=== PATIENT | male | born 1965 | race Two or more races ===

== ENCOUNTER 2020-12-11 01:14 | Emergency (ER) | payer SELFPAY ==
[2020-12-11 01:48] LABS: BLOOD UREA NITROGEN,BUN 22 mg/dL (7.0-18.0); CARBON DIOXIDE,CO2 27.5 mmol/L (21.0-32.0); CHLORIDE,CL 105 mmol/L (98-107); GLUCOSE RANDOM 143 mg/dL (74-106); LIPASE 61 U/L (73-393); POTASSIUM,K 4.2 mmol/L (3.5-5.1); SODIUM,NA 142 mmol/L (136-148)
--- NOTE | 2020-12-11 01:48 | EDM.PDOC ---
ED HPI GENERAL MEDICAL PROBLEM - General Chief Complaint: Chest Pain Stated Complaint: CHEST PAIN Time Seen by Provider: 12/11/20 01:20 Source of Information: Reports: Patient History Limitations: Reports: No Limitations - History of Present Illness INITIAL COMMENTS - FREE TEXT/NARRATIVE: Patient is a 55-year-old male with history hypertension presents today for chest pain. Patient had poor compliance with his medication states is not seen anyone or had any follow-up for his high blood pressure. But states today he had some burning-like feeling into his throat and his chest that is not radiating and is not being better or worse with any activity. The pain and burning feeling comes and goes. Is not take any medicine for it at home it is low his aspirin. Patient otherwise denies any headache vision changes pain in his arms or extremities or shortness of breath. - Related Data Allergies Allergy/AdvReac Type Severity Reaction Status Date / Time aspirin Allergy Itching Verified 12/11/20 01:24 Past Medical History Cardiovascular History: Reports: Hypertension Social & Family History - Family History Family Medical History: No Pertinent Family History - Tobacco Use Tobacco Use Status *Q: Current Every Day Tobacco User Years of Tobacco use: 30 Packs/Tins Daily: 1 - Recreational Drug Use Recreational Drug Use: No ED ROS GENERAL - Review of Systems Review Of Systems: See Below Constitutional: Reports: No Symptoms HEENT: Reports: No Symptoms Respiratory: Reports: No Symptoms Cardiovascular: Reports: Chest Pain Endocrine: Reports: No Symptoms GI/Abdominal: Reports: No Symptoms : Reports: No Symptoms Musculoskeletal: Reports: No Symptoms Skin: Reports: No Symptoms Neurological: Reports: No Symptoms Psychiatric: Reports: No Symptoms Hematologic/Lymphatic: Reports: No Symptoms Immunologic: Reports: No Symptoms ED EXAM, GENERAL - Physical Exam Exam: See Below Exam Limited By: No Limitations General Appearance: Alert, WD/WN, No Apparent Distress Eye Exam: Bilateral Eye: EOMI, PERRL Neck: Normal Inspection, Supple, Non-Tender Respiratory/Chest: No Respiratory Distress, Lungs Clear, Normal Breath Sounds Cardiovascular: Normal Peripheral Pulses, Regular Rate, Rhythm GI/Abdominal: Normal Bowel Sounds, Soft, Non-Tender Extremities: Normal Inspection, Normal Range of Motion Neurological: Alert, Oriented, CN II-XII Intact, Normal Cognition, Normal Gait #1 Interpretation EKG Date: 12/11/20 Time: 01:12 Rhythm: NSR Rate (Beats/Min): 74 ST-T: Depressed (V3 and V4 lead II) Course - Vital Signs Last Recorded V/S: Last Vital Signs Temp 96.4 F L 12/11/20 01:18 Pulse 82 12/11/20 02:44 Resp 16 12/11/20 02:44 BP 219/125 H 12/11/20 02:59 Pulse Ox 98 12/11/20 02:44 - Orders/Labs/Meds Orders: Active Orders 24 hr Category Date Time Status EKG Documentation Completion [RC] STAT Care 12/11/20 01:18 Active CTA Abd Pelv w Cont [CT] Stat Exams 12/11/20 02:17 Taken CTA Chest W WO Contrast [Ang Chest] [CT] Stat Exams 12/11/20 02:08 Taken PTT,PARTIAL THROMBOPLSTIN TIME [COAG] Q6H Lab 12/12/20 03:00 Ordered PTT,PARTIAL THROMBOPLSTIN TIME [COAG] Q6H Lab 12/12/20 09:00 Ordered PTT,PARTIAL THROMBOPLSTIN TIME [COAG] Q6H Lab 12/12/20 15:00 Ordered Heparin Sodium/0.45% NaCl [Heparin 25,000 Units in 1/2 Med 12/11/20 03:00 Active NS 500 ML] 500 ml IV TITRATE Nitroglycerin [Nitrostat] Med 12/11/20 02:54 Active 0.4 mg SL Q5M PRN Medication Orders Heparin Sodium/Sodium Chloride (Heparin 25,000 Units In 1/2 Ns 500 Ml) 500 mls @ 22.861 mls/hr IV TITRATE ISA; Protocol Last Admin: 12/11/20 02:55 Dose: 12 units/kg/hr, 22.861 mls/hr Documented by: MARCUS Cosigned by: LACEY Nitroglycerin (Nitroglycerin 0.4 Mg Tab.Sl) 0.4 mg SL Q5M PRN PRN Reason: Chest Pain Last Admin: 12/11/20 02:59 Dose: 0.4 mg Documented by: MARCUS Labs: Laboratory Tests 12/11/20 12/11/20 12/11/20 Range/Units 01:20 01:20 01:20 WBC 15.39 H (4.0-11.0) K/uL RBC 5.70 (4.50-5.90) M/uL Hgb 17.3 H (13.0-17.0) g/dL Hct 50.4 H (38.0-50.0) % MCV 88.4 (80.0-98.0) fL MCH 30.4 (27.0-32.0) pg MCHC 34.3 (31.0-37.0) g/dL RDW Std Deviation 42.2 (28.0-62.0) fl RDW Coeff of Jack 13 (11.0-15.0) % Plt Count 255 (150-400) K/uL MPV 11.30 (7.40-12.00) fL Neut % (Auto) 58.5 (48.0-80.0) % Lymph % (Auto) 32.9 (16.0-40.0) % Cameron % (Auto) 6.5 (0.0-15.0) % Eos % (Auto) 1.8 (0.0-7.0) % Baso % (Auto) 0.3 (0.0-1.5) % Neut # (Auto) 9.0 H (1.4-5.7) K/uL Lymph # (Auto) 5.1 H (0.6-2.4) K/uL Cameron # (Auto) 1.0 H (0.0-0.8) K/uL Eos # (Auto) 0.3 (0.0-0.7) K/uL Baso # (Auto) 0.1 (0.0-0.1) K/uL Nucleated RBC % 0.0 /100WBC Nucleated RBCs # 0 K/uL INR APTT (18.6-31.3) SEC D-Dimer, Quantitative 0.42 (0.0-0.50) mg/L FEU Sodium 142 (136-148) mmol/L Potassium 4.2 (3.5-5.1) mmol/L Chloride 105 (98-107) mmol/L Carbon Dioxide 27.5 (21.0-32.0) mmol/L BUN 22 H (7.0-18.0) mg/dL Creatinine 1.0 (0.8-1.3) mg/dL Est Cr Clr Drug Dosing TNP Estimated GFR (MDRD) > 60.0 ml/min Glucose 143 H (74-106) mg/dL Calcium 9.1 (8.5-10.1) mg/dL Total Bilirubin (0.2-1.0) mg/dL Direct Bilirubin (0.0-0.5) mg/dL Indirect Bilirubin AST (15-37) IU/L ALT (14-63) IU/L Alkaline Phosphatase (46-116) U/L Creatine Kinase 300 (26-308) U/L Troponin I 3.402 H* (0.000-0.056) ng/mL Total Protein (6.4-8.2) g/dL Albumin (3.4-5.0) g/dL Globulin (2.6-4.0) g/dL Albumin/Globulin Ratio (0.9-1.6) Lipase 61 L (73-393) U/L SARS-CoV-2 RNA (KRISTIAN) (NEGATIVE) 12/11/20 12/11/20 12/11/20 Range/Units 01:20 01:20 01:50 WBC (4.0-11.0) K/uL RBC (4.50-5.90) M/uL Hgb (13.0-17.0) g/dL Hct (38.0-50.0) % MCV (80.0-98.0) fL MCH (27.0-32.0) pg MCHC (31.0-37.0) g/dL RDW Std Deviation (28.0-62.0) fl RDW Coeff of Jack (11.0-15.0) % Plt Count (150-400) K/uL MPV (7.40-12.00) fL Neut % (Auto) (48.0-80.0) % Lymph % (Auto) (16.0-40.0) % Cameron % (Auto) (0.0-15.0) % Eos % (Auto) (0.0-7.0) % Baso % (Auto) (0.0-1.5) % Neut # (Auto) (1.4-5.7) K/uL Lymph # (Auto) (0.6-2.4) K/uL Cameron # (Auto) (0.0-0.8) K/uL Eos # (Auto) (0.0-0.7) K/uL Baso # (Auto) (0.0-0.1) K/uL Nucleated RBC % /100WBC Nucleated RBCs # K/uL INR 0.97 APTT 24.1 (18.6-31.3) SEC D-Dimer, Quantitative (0.0-0.50) mg/L FEU Sodium (136-148) mmol/L Potassium (3.5-5.1) mmol/L Chloride (98-107) mmol/L Carbon Dioxide (21.0-32.0) mmol/L BUN (7.0-18.0) mg/dL Creatinine (0.8-1.3) mg/dL Est Cr Clr Drug Dosing Estimated GFR (MDRD) ml/min Glucose (74-106) mg/dL Calcium (8.5-10.1) mg/dL Total Bilirubin 0.3 (0.2-1.0) mg/dL Direct Bilirubin 0.10 (0.0-0.5) mg/dL Indirect Bilirubin 0.20 AST 95 H (15-37) IU/L ALT 139 H (14-63) IU/L Alkaline Phosphatase 62 (46-116) U/L Creatine Kinase (26-308) U/L Troponin I (0.000-0.056) ng/mL Total Protein 7.8 (6.4-8.2) g/dL Albumin 3.5 (3.4-5.0) g/dL Globulin 4.3 H (2.6-4.0) g/dL Albumin/Globulin Ratio 0.8 L (0.9-1.6) Lipase (73-393) U/L SARS-CoV-2 RNA (KRISTIAN) NEGATIVE (NEGATIVE) Meds: Medications Generic Name Dose Route Start Last Admin Trade Name Freq PRN Reason Stop Dose Admin Heparin Sodium/Sodium Chloride 500 mls @ 22.861 mls/hr 12/11/20 03:00 12/11/20 02:55 Heparin 25,000 Units In 1/2 Ns 500 Ml IV 12 units/kg/hr TITRATE ISA 22.861 mls/hr Administration Protocol 12 UNITS/KG/HR Nitroglycerin 0.4 mg 12/11/20 02:54 12/11/20 02:59 Nitroglycerin 0.4 Mg Tab.Sl SL 0.4 mg Q5M PRN Administration Chest Pain Discontinued Medications Generic Name Dose Route Start Last Admin Trade Name Michaelq PRN Reason Stop Dose Admin Clopidogrel Bisulfate 300 mg 12/11/20 02:45 12/11/20 02:52 Clopidogrel 75 Mg Tab PO 12/11/20 02:46 300 mg ONETIME ONE Administration Heparin Sodium (Porcine) 4,000 units 12/11/20 02:48 12/11/20 02:54 Heparin Sodium 5,000 Units/Ml Vial IVPUSH 12/11/20 02:49 4,000 units .BOLUS ONE Administration Heparin Sodium/Sodium Chloride Confirm 12/11/20 02:53 12/11/20 02:58 Heparin 25,000 Units In 1/2 Ns 500 Ml Administered 12/11/20 02:54 Not Given Dose 500 mls @ as directed .ROUTE .STK-MED ONE Iopamidol 100 ml 12/11/20 02:39 12/11/20 02:40 Iopamidol 755 Mg/Ml 100 Ml Bottle IVPUSH 12/11/20 02:40 100 ml ONETIME ONE Administration Morphine Sulfate 4 mg 12/11/20 02:25 12/11/20 02:40 Morphine 4 Mg/Ml Syringe IVPUSH 12/11/20 02:26 4 mg ONETIME ONE Administration Nitroglycerin 0.4 mg 12/11/20 01:59 12/11/20 02:07 Nitroglycerin 0.4 Mg Tab.Sl SL 12/11/20 02:00 0.4 mg ONETIME ONE Administration - Re-Assessments/Exams Free Text/Narrative Re-Assessment/Exam: 12/11/20 02:25 Patient troponins are positive. There is still some concern about possible dissection we have not started heparin drip as we are waiting for the CT angiogram of the chest to ensure the patient does not have a dissection. Patient was given sublingual nitro and also morphine for the pain. Patient likely to be transferred. 12/11/20 03:04 Patient has been accepted to [facility]. Patient D-dimer is negative unlikely be have any dissection we'll start her heparin and get Plavix patient is allergic to aspirin. Departure - Departure Time of Disposition: 03:04 Disposition: DC/Tfer to Acute Hospital 02 Reason for Transfer *Q: Other (Cardiology eval) Condition: Fair, Serious Clinical Impression: NSTEMI (non-ST elevated myocardial infarction) Referrals: PCP,None [Primary Care Provider] - Forms: ED Department Discharge Critical Care Note - Critical Care Note Total Time (mins): 45 Comments: Critical Care Procedure Note Authorized and Performed by: Dr. Marc Total critical care time: Approximately Due to a high probability of clinically significant, life threatening deterioration, the patient required my highest level of preparedness to intervene emergently and I personally spent this critical care time directly and personally managing the patient. This critical care time included obtaining a history; examining the patient; pulse oximetry; ordering and review of studies; arranging urgent treatment with development of a management plan; evaluation of patient's response to treatment; frequent reassessment; and, discussions with other providers. This critical care time was performed to assess and manage the high probability of imminent, life-threatening deterioration that could result in multi-organ failure. It was exclusive of separately billable procedures and treating other patients and teaching time. Sepsis Event Note (ED) - Evaluation Sepsis Screening Result: No Definite Risk - Focused Exam Vital Signs: Vital Signs Temp Pulse Resp BP BP BP Pulse Ox 12/11/20 02:59 219/125 H 12/11/20 02:44 82 16 199/106 H 98 12/11/20 02:13 71 20 183/98 H 98 12/11/20 02:07 204/105 H 12/11/20 02:05 204/105 H 12/11/20 01:51 73 20 202/113 H 99 12/11/20 01:18 96.4 F L 77 20 221/123 H 100 - My Orders Last 24 Hours: My Active Orders 12/11/20 01:18 EKG Documentation Completion [RC] STAT 12/11/20 02:08 CTA Chest W WO Contrast [Ang Chest] [CT] Stat 12/11/20 02:17 CTA Abd Pelv w Cont [CT] Stat 12/11/20 02:54 Nitroglycerin [Nitrostat] 0.4 mg SL Q5M PRN 12/11/20 03:00 Heparin Sodium/0.45% NaCl [Heparin 25,000 Units in 1/2 NS 500 ML] 500 ml IV T ITRATE 12/12/20 03:00 PTT,PARTIAL THROMBOPLSTIN TIME [COAG] Q6H 12/12/20 09:00 PTT,PARTIAL THROMBOPLSTIN TIME [COAG] Q6H 12/12/20 15:00 PTT,PARTIAL THROMBOPLSTIN TIME [COAG] Q6H - Assessment/Plan Last 24 Hours: My Active Orders 12/11/20 01:18 EKG Documentation Completion [RC] STAT 12/11/20 02:08 CTA Chest W WO Contrast [Ang Chest] [CT] Stat 12/11/20 02:17 CTA Abd Pelv w Cont [CT] Stat 12/11/20 02:54 Nitroglycerin [Nitrostat] 0.4 mg SL Q5M PRN 12/11/20 03:00 Heparin Sodium/0.45% NaCl [Heparin 25,000 Units in 1/2 NS 500 ML] 500 ml IV T ITRATE 12/12/20 03:00 PTT,PARTIAL THROMBOPLSTIN TIME [COAG] Q6H 12/12/20 09:00 PTT,PARTIAL THROMBOPLSTIN TIME [COAG] Q6H 12/12/20 15:00 PTT,PARTIAL THROMBOPLSTIN TIME [COAG] Q6H Plan: Patient is a 55-year-old male presents today for elevated blood pressure and chest pain. Patient has heart score 4 due to a story and risk factors. Will obtain troponins EKG and reassess patient.
[2020-12-11] MEDS ORDERED: Nitroglycerin 0.4 MG Tab.SL SL ONE (01:59)
--- NOTE | 2020-12-11 02:11 | CR ---
Indication: Chest pain Technique: Chest 2 views Comparison: None Findings/Impression: Cardiovascular and mediastinum: Mild cardiomegaly with atherosclerotic calcification. Lungs and pleural spaces: No pleural effusion or pneumothorax. No focal consolidation. Discoid atelectasis. Slight bronchial wall thickening and minimal interstitial haziness, bronchitis versus reactive airways disease. Bones and soft tissues: No significant findings. Dictated by Mansoor Stock MD @ 12/11/2020 2:10:[address] Mansoor Stock @ Dec 11 2020 2:10AM
[2020-12-11 02:21] LABS: BILIRUBIN INDIRECT 0.2
[2020-12-11] MEDS ORDERED: Morphine 4 MG/ML Syringe IVPUSH ONE (02:25)
[2020-12-11] MEDS ORDERED: Iopamidol 755 Mg/ML 100 ML Bottle IVPUSH ONE (02:39)
[2020-12-11] MEDS ORDERED: Clopidogrel 75 MG Tab PO ONE (02:45)
[2020-12-11] MEDS ORDERED: Heparin Sodium 5,000 Units/ML Vial IVPUSH ONE (02:48)
[2020-12-11] MEDS ORDERED: Heparin Sodium/0.45% NaCl 500 ML ONE (02:53)
[2020-12-11] MEDS: Nitroglycerin 0.4 MG Tab.SL SL PRN ×2 (02:59→03:04)
[2020-12-11] MEDS ORDERED: Heparin Sodium/0.45% NaCl 500 ML IV SCH (03:00)
[2020-12-11] MEDS ORDERED: Nitroglycerin/D5W 25 MG/250 ML BOTTLE ONE (03:09)
[2020-12-11] MEDS ORDERED: Nitroglycerin/D5W 25 MG/250 ML BOTTLE IV SCH (03:15)
--- NOTE | 2020-12-11 03:38 | CT ---
INDICATION: Chest pain, possible dissection TECHNIQUE: Axial images were obtained from the thoracic inlet to the diaphragm. Reformats: Coronal and sagittal IV Contrast: 100 cc Isovue 370 COMPARISON: None. FINDINGS: Mediastinum: The great vessels are unremarkable. Left ventricular hypertrophy. Thoracic aorta is normal in caliber without evidence of dissection. Mild atherosclerosis including coronary atherosclerosis. No enlarged mediastinal lymph nodes. Lungs and Pleural Space: No pleural effusion or pneumothorax. Scattered areas of discoid atelectasis. Chest wall: No masses. Bones: Unremarkable for age. IMPRESSION: 1. No evidence of thoracic aortic aneurysm or dissection. 2. Left ventricular hypertrophy. 3. No acute pulmonary consolidation. Please note that all CT scans at this facility use dose modulation, iterative reconstruction, and/or weight-based dosing when appropriate to reduce radiation dose to as low as reasonably achievable. Dictated by Mansoor Stock MD @ 12/11/2020 3:37:[address] Mansoor Stock @ Dec 11 2020 3:37AM
--- NOTE | 2020-12-11 03:44 | CT ---
INDICATION: Chest pain, possible dissection TECHNIQUE: Axial images were obtained from the diaphragm to the pubic symphysis. Reformats were obtained in the coronal and sagittal plane. IV Contrast: 100 cc Isovue 370 Oral Contrast: None COMPARISON: None. FINDINGS: Liver: Diffusely decreased density liver without focal lesion. Gallbladder and bile ducts: Unremarkable. No stones or inflammation. No biliary dilatation. Spleen: Unremarkable. Normal in size without mass. Pancreas: Unremarkable. No mass or inflammation. Adrenal glands: Unremarkable. No nodules. Kidneys: Symmetric renal enhancement without hydronephrosis. Right renal cyst. Vasculature: Abdominal aorta is normal in caliber without evidence of dissection. Celiac artery, superior mesenteric and renal arteries unremarkable. Inferior mesenteric artery unremarkable. Mild atherosclerotic calcification. Common, internal and external iliac arteries unremarkable. GI tract: Stomach unremarkable. Appendix unremarkable. No dilated loops of large or small intestine. Colonic diverticulosis. Pelvis: Mild prostatic enlargement. Bones: Bilateral sacroiliac osteoarthritis. Spondylolysis L5. IMPRESSION: 1. No evidence of abdominal aortic aneurysm or dissection. 2. Colonic diverticulosis without jose diverticulitis. 3. Hepatic steatosis. Please note that all CT scans at this facility use dose modulation, iterative reconstruction, and/or weight-based dosing when appropriate to reduce radiation dose to as low as reasonably achievable. Dictated by Mansoor Stock MD @ 12/11/2020 3:42:[address] Mansoor Stock @ Dec 11 2020 3:42AM
== END 2020-12-11 03:36 ==
LOC: MW.ED 01:14
DX: I21.4 Non-ST elevation (NSTEMI) myocardial infarction (principal); Z88.8 Allergy status to other drugs, medicaments and biological substances; Z20.822 Contact with and (suspected) exposure to COVID-19; Z72.0 Tobacco use
CPT/HCPCS: 36415; 71046; 71275; 74174; 80048; 80076; 82550; 83690; 84484; 85025; 85379; 85610; 85730; 87635; 93005; 96365; 96375; 99285; A9270; J1644; J2270; Q9967; 99291; U0002

== ENCOUNTER 2022-01-25 15:27 | Emergency (ER) | payer BC ==
[2022-01-25] MEDS ORDERED: Cyclobenzaprine 10 MG Tab PO ONE (15:30)
[2022-01-25 16:10] LABS: BLOOD UREA NITROGEN,BUN 21 mg/dL (7.0-18.0); CARBON DIOXIDE,CO2 26.3 mmol/L (21.0-32.0); CHLORIDE,CL 105 mmol/L (98-107); ESTIMATED GFR 100 mL/min (>60); GLUCOSE RANDOM 103 mg/dL (74-106); POTASSIUM,K 4.1 mmol/L (3.5-5.1); SODIUM,NA 139 mmol/L (136-148)
== END 2022-01-25 16:35 | disposition home or self-care (01) ==
LOC: MW.ED 15:27
DX: S29.011A Strain of muscle and tendon of front wall of thorax, initial encounter (principal); I10 Essential (primary) hypertension; Z79.899 Other long term (current) drug therapy; Z88.6 Allergy status to analgesic agent; X50.9XXA Other and unspecified overexertion or strenuous movements or postures, initial encounter; Y99.0 Civilian activity done for income or pay
CPT/HCPCS: 36415; 71045; 80053; 84484; 85025; 93005; 99285; A9270; 93010; 99284